=== PATIENT | female | born 1960 | race African-American/Black ===

== ENCOUNTER 2021-07-15 05:00 | Day surgery (SDC) | payer OTHER, SELFPAY ==
[~2021-07-15] VITALS: Ht 162.6 cm; Wt 80.7 kg
[~2021-07-15 05:00] MED LIST: COR25 PO; HYDR-3927 PO; HYDR25TA4 PO; LORA-259 PO; METH-34 PO; POTA10TA15 PO
[2021-07-15] MEDS ORDERED: ROCURONIUM BROMIDE 10 MG/ML (ZEMURON) ONE (08:00)
[2021-07-15] MEDS ORDERED: KETOROLAC TROMETHAMINE 30 MG VIAL ONE (08:00)
[2021-07-15] MEDS ORDERED: DEXAMETHASONE SOD PHOSPHATE 4 MG/ML VIAL ONE (08:00)
[2021-07-15] MEDS ORDERED: LIDOCAINE/EPI 1% 1:100000 20 ML VIAL INJ ONE (08:00)
[2021-07-15] MEDS ORDERED: PROPOFOL 200MG/ 20ML VIAL (DIPRIVAN) IV ONE (08:00)
[2021-07-15] MEDS ORDERED: ONDANSETRON HCL 4 MG/2 ML VIAL ONE (08:00)
[2021-07-15] MEDS ORDERED: ceFAZolin SODIUM 1 GM VIAL ONE (08:00)
[2021-07-15] MEDS ORDERED: CLINDAMYCIN 2% VAGINAL CREAM VG ONE (08:00)
[2021-07-15] MEDS ORDERED: SUGAMMADEX SODIUM 200 MG/2 ML VIAL IV ONE (08:00)
[2021-07-15] MEDS ORDERED: DESFLURANE 15 MIN GAS INH ONE (08:00)
[2021-07-15] MEDS ORDERED: NS IRRIG SOLN 1000 ML IR ONE (08:00)
[2021-07-15] MEDS ORDERED: fentaNYL CITRATE 250 MCG/5 ML AMP ONE (08:00)
[2021-07-15] MEDS ORDERED: MIDAZOLAM HCL 2 MG/2 ML VIAL (VERSED) ONE (08:00)
[2021-07-15] MEDS ORDERED: LR 1,000 ML IV.SOLN IV ONE (08:00)
[2021-07-15] MEDS ORDERED: hydrALAZINE HCL 20 MG/ML VIAL IVP PRN (08:45)
[2021-07-15] MEDS ORDERED: HYDROmorphone 1 MG/ML INJ. CARTRIDGE IVP PRN ×2 (08:45)
[2021-07-15] MEDS ORDERED: LABETALOL 100 MG/ 20ML VIAL IVP PRN (08:45)
[2021-07-15] MEDS ORDERED: MEPERIDINE HCL/PF 25 MG/ML DISP.SYRIN IVP PRN (08:45)
[2021-07-15] MEDS ORDERED: LR 1,000 ML IV SCH (08:45)
[2021-07-15] MEDS ORDERED: METOCLOPRAMIDE HCL 10 MG/2 ML VIAL IVP PRN (08:45)
[2021-07-15] MEDS ORDERED: MIDAZOLAM HCL 2 MG/2 ML VIAL (VERSED) IVP PRN (08:45)
[2021-07-15] MEDS ORDERED: BUPIVACAINE LIPOSOME/PF 266 MG/20 ML VIAL INFIL ONE (08:49)
[2021-07-15] MEDS ORDERED: ACETAMINOPHEN I.V. 1000 MG 100 ML IV ONE (09:06)
[2021-07-15] MEDS ORDERED: HYDROmorphone 1 MG/ML INJ. CARTRIDGE ONE (10:14)
--- NOTE | 2021-07-15 11:30 | NUR ---
ADMISSION NOTE Received patient from PACU via gurney. Patient is awake, alert, oriented X4 . Patient oriented to hospital room, call light, toileting, pain management and safety-teach back done. Patient informed that Belén will be their nurse and that their room number is [id number]. Personal belongings checked and Belongings List documented. Call light within reach.
[2021-07-15] MEDS: OXYCODONE/ACETAMINOPHEN 5-325 TABLET PO PRN ×3 (13:09→23:12)
[2021-07-15] MEDS: LR 1,000 ML IV SCH ×2 (13:10→21:03)
--- NOTE | 2021-07-15 13:30 | NUR ---
ROUNDS Patient awake, alert, and oriented x4. Vital signs within normal limits. Complaints of pain in the right hip/abdomen (10/30). A small amount of vaginal discharge, scant bleeding, seen on the pad. Patient states that she feels good, has been able to tolerate ice chips and some jello. Will continue to monitor.
[2021-07-15 15:33] VITALS: BP_SYST 142
[2021-07-15] MEDS: ceFAZolin SODIUM 1 GM in D5W 50 ML IV SCH ×2 (15:56→22:10)
[2021-07-15 16:00] VITALS: BP_SYST 164
--- NOTE | 2021-07-15 19:30 | NUR ---
CLOSING NOTE Patient in bed resting, at bedside. No sign of shortness of breath on room air. Patient complaining of pain in the low back, offered to reposition and provide pillow support until its time for the next pain medication administration. Patient states that pain is manageable at this time. IV site is clean, dry, intact and patent. Franco intact and draining clear yellow urine. All needs met at this time, safety checks made and report given to oncoming night nurse.
[2021-07-15] MEDS: HYDROcodone/ACETAMIN 5-325 MG TAB (NORCO/ VICODIN) PO PRN (20:11)
[2021-07-15] MEDS ORDERED: ONDANSETRON HCL 4 MG/2 ML VIAL IVP PRN (20:30)
[2021-07-16] MEDS: OXYCODONE/ACETAMINOPHEN 5-325 TABLET PO PRN (03:03)
[2021-07-16] MEDS: LR 1,000 ML IV SCH (05:31)
[2021-07-16] MEDS: ceFAZolin SODIUM 1 GM in D5W 50 ML IV SCH (05:38)
[2021-07-16] MEDS: HYDROcodone/ACETAMIN 5-325 MG TAB (NORCO/ VICODIN) PO PRN (08:19)
[2021-07-16 08:23] VITALS: BP_SYST 164
--- NOTE | 2021-07-16 09:00 | NUR ---
Franco catheter removed. I instructed patient to sit at bedside before getting out of bed. She denies any pain or discomfort.
--- NOTE | 2021-07-16 09:30 | NUR ---
Patient observed to ambulate without help to the bathroom. I later confirmed that she successfully urinated without any pain or discomfort.
[2021-07-16 10:30] VITALS: BP_SYST 156
--- NOTE | 2021-07-17 07:20 | NUR ---
Received report from SANDRA Cardenas and assumed patient care.
== END 2021-07-16 10:55 | disposition home or self-care (01) ==
LOC: SDS 05:00 → SMU 05:00 → SDS 07-16 10:55
PROVIDERS: ATTEND Specialist
DX: N81.10 Cystocele, unspecified (principal); N81.6 Rectocele; I10 Essential (primary) hypertension; K21.9 Gastro-esophageal reflux disease without esophagitis; E11.40 Type 2 diabetes mellitus with diabetic neuropathy, unspecified; Z20.822 Contact with and (suspected) exposure to COVID-19; Z79.899 Other long term (current) drug therapy
CPT/HCPCS: 36415; 57260; 71046; 82962; 87426; 88305; C9290; J0131; J0690; J1100; J1170; J1885; J2405; J2704; J3010; J3465; J3490; J7060; J7120; U0003

== ENCOUNTER 2022-10-01 10:42 | Outpatient (CLI) | payer OTHER | END 2022-10-01 20:31 | disposition home or self-care (01) | LOC: SRD 10:42 | PROVIDERS: ATTEND Anesthesiology Pain Medicine | DX: Z01.818 Encounter for other preprocedural examination (principal); M96.1 Postlaminectomy syndrome, not elsewhere classified; G89.4 Chronic pain syndrome; M54.41 Lumbago with sciatica, right side; M47.816 Spondylosis without myelopathy or radiculopathy, lumbar region; M54.17 Radiculopathy, lumbosacral region | CPT/HCPCS: 71046-TC ==